=== PATIENT | female | born 1935 | race Caucasian/White ===

== ENCOUNTER 2020-04-11 00:10 | Outpatient (CLI) | payer MEDICARE, SELFPAY ==
[2020-04-12 16:05] LABS: SARS-CoV-2 RNA PCR Negative
== END 2020-04-11 00:11 | disposition home or self-care (01) ==
LOC: ANHCOVIDDT 00:11
PROVIDERS: Visit Provider Surgery
DX: Z01.812 Encounter for preprocedural laboratory examination (principal); Z20.828 Contact with and (suspected) exposure to other viral communicable diseases
CPT/HCPCS: 87635; C9803; U0003

== ENCOUNTER 2020-04-11 07:59 | Outpatient (CLI) | payer MEDICARE, SELFPAY ==
--- NOTE | 2020-04-11 08:04 | ECG_ITS ---
Measurements Intervals [place] Rate: 70 P: 32 SC: 158 QRS: -51 QRSD: 116 T: 19 QT: 376 QTc: 407 Interpretive Statements SINUS RHYTHM RIGHT BUNDLE BRANCH BLOCK LEFT ANTERIOR FASCICULAR BLOCK VOLTAGE CRITERIA FOR LVH BASELINE ARTIFACT- I, II, III, AVR, AVL, AVF, V1-V6 ABNORMAL ECG Electronically Signed On 04-11-2020 8:28:46 CATALYTIC CONVERTER OPERATOR HELPER by Darren Smith D.O.
[2020-04-11 08:30] LABS: Basophils Absolute Auto 0.1 K/mm3 (0.0-0.1); Basophils Percent Auto 1.5 % (0.2-1.2); Eosinophils Percent Auto 13.2 % (0-4.4); Hematocrit 46.4 % (37.0-47.0); Hemoglobin 14.7 g/dL (12.0-15.0); Immature Granulocyte Absolute 0.03 K/mm3 (0.00-0.031); Immature Granulocyte Percent A 0.4 % (0-0.5); Lymphocytes Absolute Auto 1.13 K/mm3 (0.9-3.2); Lymphocytes Percent Auto 14.9 % (18.3-44.2); Mean Corpuscular HGB Conc 31.7 g/dl (32-36); Mean Corpuscular Hemoglobin 29.3 pg (26-34); Mean Corpuscular Volume 92.4 fl (80-100); Mean Platelet Volume 9.1 fl (7.4-10.4); Monocytes Percent Auto 12.8 % (2.6-8.5); Neutrophils Absolute Auto 4.3 K/mm3 (1.3-6.7); Neutrophils Percent Auto 57.2 % (45.5-73.1); Platelet Count Result 255 k/mm3 (150-375); Red Blood Count 5.02 M/mm3 (4.2-5.4); Red Cell Distribution Width 12.7 % (11.5-14.5); White Blood Count 7.6 K/mm3 (4.5-10.0)
[2020-04-11 08:43] LABS: Alanine Aminotransferase 12 U/L (4-35); Albumin Level 3.9 g/dL (3.5-5.1); Alkaline Phosphatase 122 U/L (38-126); Amylase 59 U/L (30-110); Anion Gap 5 mmol/L (8-16); Aspartate Amino Transferase 21 U/L (14-36); Bilirubin,Total 0.9 mg/dL (0.2-1.3); Blood Urea Nitrogen 20 mg/dL (7-17); Calcium 9.4 mg/dL (8.4-10.2); Carbon Dioxide 30 mmol/L (22-30); Chloride 103 mmol/L (98-107); Estimated Glomerular Filt Rate > 60; Glucose 106 mg/dL (65-105); Lipase 53 U/L (23-300); Potassium 5.2 mmol/L (3.4-5.0); Sodium 138 mmol/L (137-145)
== END 2020-04-11 08:00 | disposition home or self-care (01) ==
PROVIDERS: PCP Family Medicine; Visit Provider Surgery
DX: Z01.818 Encounter for other preprocedural examination (principal); K81.1 Chronic cholecystitis; I45.2 Bifascicular block
CPT/HCPCS: 36415; 80053; 82150; 82248; 83690; 85025; 93005

== ENCOUNTER 2020-04-13 01:03 | Day surgery (SDC) | payer MEDICARE, SELFPAY ==
[2020-04-10 15:57] VITALS: BMI 26.0
--- NOTE | 2020-04-12 13:00 | P.PNAN_ITS ---
Anes - Initial Pre Proc Eval Procedure: Operation Date: 04/13/20 11:30 Proposed Procedures p Laparoscopic Cholecystectomy, Possible Intraoperative Cholangiogram - Saad Michel MD Date/Time: 04/12/20 13:00 Surgeon: Saad Michel MD Pre Op Diagnosis: chronic cholelithiasis Patient Data Age: 85 Gender: F Height: 1.57 m Weight: 64.54 kg Allergies Allergy/AdvReac Type Severity Reaction Status Date / Time No Known Allergies Allergy Unverified 04/13/20 09:37 Home Medications Medication Instructions Recorded Confirmed Type hydrocodone 5 mg-acetaminophen 325 1 tablet PO Q8H PRN 04/06/20 04/13/20 History mg tablet tramadol 50 mg tablet 50 mg PO Q6H PRN 04/06/20 04/13/20 History ergocalciferol (vitamin D2) 50,000 unit PO WEEKLY 04/13/20 04/13/20 History Patient hx anesthesia problems: none Family hx anesthesia problems: none [facility] Past Medical History Medical History (Updated 04/12/20 @ 13:01 by Gordy Toussaint MD) BMI 28.0-28.9,adult Chronic cholecystitis Pre-op testing Surgical History Surgical History Hx of tonsillectomy Family History Family History Father No problems noted. Mother No problems noted. 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 Questions were solicited and answers provided to the satisfaction of the patient/family/POA.
[2020-04-13] VITALS (8 sets, daily range): BP systolic 97–141; BP diastolic 53–77; PULSE 65–89; RESP 12–20; TEMP 36.3–36.6; O2SAT 94–100
[2020-04-13] MEDS: ACETAMINOPHEN 500 MG TABLET 1000 MG PO (09:52)
[2020-04-13] MEDS: KETOROLAC 15 MG/ML VIAL (*BKC) IV PUSH (10:04)
[2020-04-13] MEDS: LACTATED RINGERS 1,000 ML 30 ML IV CONT ×2 (10:04→12:33)
--- NOTE | 2020-04-13 10:17 | WPDHPUPDATE1 ---
History and Physical Update Update Date/Time: 04/13/20 10:17 History and Physical has been reviewed, including an updated exam of the patient. There are NO changes in the patient's condition. Risks, benefits, and alternatives have been discussed and questions answered. Patient agrees to proceed with procedure.
--- NOTE | 2020-04-13 10:25 | SUR.PREOP ---
pt voided prior to surgery.
[2020-04-13] MEDS: ceFAZolin 2 GM/D5W 50 ML 2 GM/50 ML BAG IVPB (10:39)
[2020-04-13] MEDS: BUPIVACAINE HCL 0.5% PF 30 ML VIAL INFILTRATE (11:04)
--- NOTE | 2020-04-13 12:27 | P.OP_ITS ---
Procedure Note - Detailed Date of procedure: 04/13/20 Pre-op diagnosis: chronic cholelithiasis Chronic Cholecystitis with Cholelithiasis Post-op diagnosis: same Procedure performed: Laparoscopic Cholecystectomy Description of procedure: Patient was seen preoperatively in the holding area and risks, benefits and alternatives confirmed. Patient was taken to the operating room and general anesthesia was induced. A time out was then preformed with the surgery team confirming patient and site of surgery. The abdomen was prepped and draped in the usual sterile fashion. Incision was made just below the umbilicus with an 11 blade knife. I placed 2 stay sutures of O- Vicryl on either side of the mid- line fascia beneath the umbilicus and was then able to slide in the Kumar cannula through the fascial defect into the peritoneum. First under low flow and then under high flow the abdomen was insufflated with carbon dioxide never exceeding a pressure of 14. Three 5 mm trocars were then introduced under direct vision. The following trocars were introduced under direct vision: a 5 mm in the epigastrium and two 5 mm trocars along the right costal margin laterally in the subcostal area. There were no significant adhesions to the gallbladder. I then carefully used the L-shaped cautery and the [place] dissector to dissect out the triangle of [place]. I then was able to dissect out both the cystic duct and cystic artery and identify a window of safety. There was slight bile leakage with a little small hole in the back wall the gallbladder as I dissected out the window of safety. I did see the small hole and we irrigated this away and appears that a stone stop the leakage from the inside as we did not have problems with leakage from then on. The gall bladder was grasped and the cystic duct and artery were dissected free and clipped with an 5 mm endo-clip electrical test engineer. The cystic duct and artery were clipped with use of 2 clips on the patient's side 1 on the gallbladder side utilizing a 5 mm endoclip-electrical test engineer. The cystic duct was then transected. The cystic artery was also transected at this point. The gall bladder was removed using electrocautery and then removed from the abdomen using an endobag. The trocars were removed visualizing hemostasis and the remaining gas evacuated. The large trocar site at the umbilicus was closed with use of the 2 stay sutures of 0 Vicryl mentioned above and also a figure of 8 O-Vicryl suture. The 2 stay sutures mentioned above on either side of the fascia were also tied together to help approximate this midline fascia. Further local anesthetic was placed into each incision for postop pain control. The skin incisions were closed with subcuticular suture of 4-0 Monocryl. Surgical glue then was applied to all the incisions. Patient tolerated the procedure well was taken to the recovery room in good condition. Anesthesia: GETA Surgeon: Saad Michel MD [employer] Systems Adminstrator: Matthew JUNIOR, OR bus assistant Estimated blood loss (mL): 15 Drains: No Packing: No Pathology: yes (Gallbladder) Complications: No immediate complications Condition: stable Disposition: PACU Findings: Palpation of the gallbladder after removal revealed 1 approximately 0.8 cm rounded stone within the gallbladder.
== END 2020-04-13 14:26 | disposition home or self-care (01) ==
PROVIDERS: PCP Family Medicine; Visit Provider Surgery
PROC: 0FT44ZZ Resection of Gallbladder, Percutaneous Endoscopic Approach (ICD-10-PCS; CPT 47562; principal; 2020-04-13 10:30)
DX: K80.10 Calculus of gallbladder with chronic cholecystitis without obstruction (principal)
CPT/HCPCS: 47562; 36415; 80053; 82150; 82248; 83690; 85025; 87635; 88304; 93005; A9270; C9803; J0690; J1100; J1885; J2405; J2704; J2710; J3010; J7120; U0003